=== PATIENT | male | born 1960 | race Caucasian/White ===

== ENCOUNTER 2018-01-13 08:13 | Day surgery (SDC) | payer MEDICARE, MEDICAID ==
[2018-01-13] MEDS ORDERED: Sodium Chloride 0.9% 10 ML Syringe FLUSH PRN (08:15)
[2018-01-13] MEDS ORDERED: Lactated Ringers 1,000 ML IV SCH (08:15)
[2018-01-13] MEDS ORDERED: Propofol 200 MG/20 ML SDV IV ONE (09:30)
[2018-01-13] MEDS ORDERED: Midazolam 1 MG/ML 2 ML SDV IV ONE (09:30)
--- NOTE | 2018-01-13 10:12 | PCM.OPNOTE ---
- General Post-Op/Procedure Note Date of Surgery/Procedure: 01/13/18 Operative Procedure(s): c scope with biopsy Findings: cecal polyp descending colon polyp x2 sigmoid polyp Pre Op Diagnosis: colon cancer screening Post-Op Diagnosis: cecal polyp. descending colon polyp x2. sigmoid polyp Anesthesia Technique: MAC Primary Surgeon: Kvng Jauregui Anesthesia Provider: Annabelle Otto Pathology: cecal polyp descending colon polyp x2 sigmoid polyp Complications: None Condition: Good Free Text/Narrative:: see dictation
[2018-01-13 11:25] VITALS: BP 132/81
--- NOTE | 2018-01-13 15:42 | OR ---
DATE OF OPERATION: 01/13/2018 SURGEON: Kvng Jauregui MD PROCEDURE PERFORMED: Colonoscopy with cold forceps and cold loop biopsy. PREOPERATIVE DIAGNOSIS: Screening colonoscopy. POSTOPERATIVE DIAGNOSIS: Cecal polyp, descending colon polyp x2, and sigmoid colon polyp. INDICATIONS FOR PROCEDURE: This 58-year-old white male presents for screening colonoscopy. He was offered and accepted same. DESCRIPTION OF OPERATION: After an excellent general IV sedation was administered, digital rectal exam was performed. No marked abnormality was noted. The flexible colonoscope was inserted and advanced to the cecum without difficulty. The following findings were noted. Near the appendix and the cecum, the patient had a small discolored area that appeared to be adenomatous compared to the surrounding tissue. This was biopsied and sent for permanent. The remainder of the ascending colon was unremarkable. Transverse colon was unremarkable. Descending colon, a small plaque area, biopsied with cold biopsy forceps and sent for permanent and then right next to it was a small polypoid lesion, biopsied with cold loop snare and sent for permanent. Sigmoid demonstrated a small polyp, biopsied with cold forceps biopsies and sent for permanent. Rectum and anus were unremarkable. Colon was deflated. Scope was removed. The patient tolerated the procedure well and was taken to recovery room in good condition. /[id number] /RADHA
== END 2018-01-13 11:10 | disposition home or self-care (01) ==
LOC: FB.SDS 08:13
PROVIDERS: ATTEND Surgery
DX: Z12.11 Encounter for screening for malignant neoplasm of colon (principal); D12.4 Benign neoplasm of descending colon; K63.5 Polyp of colon; Z88.0 Allergy status to penicillin; Z79.899 Other long term (current) drug therapy; I10 Essential (primary) hypertension; F32.9 Major depressive disorder, single episode, unspecified; I63.239 Cerebral infarction due to unspecified occlusion or stenosis of unspecified carotid artery; F17.210 Nicotine dependence, cigarettes, uncomplicated
CPT/HCPCS: 00812; 45380; 45385; 88305; J2250; J2704; J7120

== ENCOUNTER 2019-04-07 18:05 | Emergency (ER) | payer MEDICARE, MEDICAID ==
[2019-04-07] MEDS ORDERED: Rocuronium 50 MG/5 ML Vial IVPUSH ONE (18:06)
[2019-04-07] MEDS ORDERED: Propofol 200 MG/20 ML SDV IV ONE (18:06)
[2019-04-07] MEDS ORDERED: Phenylephrine 1% 10 MG/ML SDV IV ONE (18:06)
[2019-04-07] MEDS ORDERED: LORazepam 2 MG/ML SDV IVPUSH ONE (18:29)
[2019-04-07] MEDS ORDERED: Sodium Chloride 0.9% 1,000 ML IV ONE ×2 (18:29→19:29)
[2019-04-07] MEDS ORDERED: levETIRAcetam 1,000 MG in Sodium Chloride 0.9% 100 ML IV ONE (18:35)
[2019-04-07] MEDS ORDERED: Succinylcholine 200 MG/10 ML MDV IV ONE (19:03)
[2019-04-07] MEDS ORDERED: Midazolam 1 MG/ML 2 ML SDV IVPUSH ONE ×2 (19:08→19:11)
--- NOTE | 2019-04-07 20:21 | EDM.PDOC ---
ED HPI GENERAL MEDICAL PROBLEM - General Chief Complaint: Neurological Problem Stated Complaint: FALL-HEAD INJURY Time Seen by Provider: 04/07/19 18:15 Source of Information: Reports: Patient, EMS History Limitations: Reports: Other (Patient is postictal and he is amnestic of the events that occurred. He does feel that he has had a seizure as he has had multiple seizures in the past.) - History of Present Illness INITIAL COMMENTS - FREE TEXT/NARRATIVE: 59-year-old male who was found down in his garage with a laceration to his scalp and quite a bit of blood around the scalp laceration. He was awake and responsive according to EMS at that time but did appear to be somewhat confused/ post ictal. According to family and friends, the patient was last seen at approximately 3 PM when he told his friends that he was going to check on something and he would be back chi short period of time. Apparently he was not seen and at approximately 4:30 pm someone went to check on him and found him in his garage as mentioned above. According to the family and friends the patient had run out of his seizure medications (Keppra) and had not been taking his medication for approximately one week. The friends also felt that today, in retrospect, he seemed to be somewhat more nervous and shaky than normal. Apparently he had had no vomiting. He had no cough or cold symptoms. He had no fever.When he presented to the emergency department he was awake and alert. He was able to give information including previous information from today but was completely amnestic of the events that occurred after he left his friend's house and went to his garage until now. He was denying any headache or neck pain at this time but he was reporting the had diffuse back pain and was uncomfortable and felt very cold. He is not really able to rate his pain. And while I was placing orders on the patient, the patient had another seizure ( generalized tonic-clonic, lasting approximately 2 minutes and resolved on its own)he was given Ativan 1 mg after this and became more combative and was noted to have blood pressure in the 60-70 systolic range with O2 saturations in the mid 80s requiring supplemental oxygen and his mental status continued to deteriorate and required urgent intubation. There no other associated signs or symptoms. There are no other modifying factors. 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: Reports: Other (see below) (nothing) - Related Data Allergies Allergy/AdvReac Type Severity Reaction Status Date / Time Penicillins Allergy Cannot Verified 01/13/18 08:27 Remember Home Meds: Home Meds Clopidogrel [Plavix] 75 mg PO DAILY 02/01/14 [History] Hydrochlorothiazide/Lisinopril [Lisinopril-HCTZ 20-25 MG] 1 tab PO DAILY [History] levETIRAcetam [Keppra] 1,500 mg PO BID 02/01/14 [History] Citalopram Hydrobromide [Celexa] 40 mg PO DAILY 01/12/18 [History] Multivitamin with Minerals [Multiple Vitamin] 1 tab PO DAILY 01/12/18 [History] lamoTRIgine [Lamictal] 100 mg PO BID 01/12/18 [History] Past Medical History HEENT History: Reports: Impaired Vision Cardiovascular History: Reports: Hypertension Neurological History: Reports: Seizure, TIA Psychiatric History: Reports: Depression - Past Surgical History HEENT Surgical History: Reports: Tonsillectomy Cardiovascular Surgical History: Reports: Carotid Endarterectomy (right) Social & Family History - Family History Family Medical History: Noncontributory - Caffeine Use Caffeine Use: Reports: Coffee, Soda - Alcohol Use Alcohol Use History: Yes Alcohol Use Frequency: Rarely - Living Situation & Occupation Occupation: Disabled ED ROS GENERAL - Review of Systems Review Of Systems: ROS reveals no pertinent complaints other than HPI. (however , patient is postictal and although he gives some history that is reliable he is unreliablewith other history, therefore I feel that his review of systems is unreliable and unobtainable) - Physical Exam Exam: See Below Exam Limited By: No Limitations General Appearance: Alert, Moderate Distress Eye Exam: Bilateral Eye: EOMI, Normal Inspection, PERRL Ears: Normal External Exam, Hearing Grossly Normal Nose: Normal Inspection, Normal Mucosa, No Blood Throat/Mouth: Normal Voice, No Airway Compromise, Evidence of Tongue Biting, Other (dry mucous membranes) Head Exam: Scalp Lacerations, Other (large stellate laceration to thetop of his head. It is 18 cm in length totally) Neck: Non-Tender, Other (no crepitus. No evidence of trauma.) Respiratory/Chest: No Respiratory Distress, Lungs Clear, Normal Breath Sounds, Chest Non-Tender Cardiovascular: Normal Peripheral Pulses, No JVD, Tachycardia GI/Abdominal: Normal Bowel Sounds, Soft, No Mass (scaphoid) (Male) Exam: Normal Inspection, Circumcised Neuro Exam (Abbreviated): Alert, No Motor/Sensory Deficits, Disoriented ( somewhat. He appears postictal.) Extremities: Normal Inspection, Normal Range of Motion, No Pedal Edema, Normal Capillary Refill Skin Exam: Other (laceration to scalp as above. Somewhat pale appearing. Somewhat cool distal extremities.) ED PROCEDURES - Laceration/Wound Repair [place] Lac/wound length in cm: 18 Appearance: Subcutaneous, Moderately Contaminated, Other (did not involve galea) Anesthetic Type: Other (none, patient was chemicallyparalyzed and chemically sedated.) Skin Prep: Other (none) Saline irrigation (cc's): 1,000 Exploration/Debridement/Repair: Wound Explored, Other (lots removed and wound cultures irrigated with 1000 mL of normal saline. No crepitus or bony deformity noted.) Closed with: William (multiple william replace to reapproximate the wound and then a pressure type dressing was applied with an Lane wrap. This was performed after the patient was intubated.) - Endotracheal Intubation Time of Intubation: 19:04 ET Intubation Indication: Respiratory Failure, Airway Protection, Other Preparation: Suction, Balloon Tested, BVM Set Up, Difficult Airway Equip Airway Assessment: Other (typical) Pre-Oxygenation: Assisted with BVM, 100% FiO2, Other (nasal cannula laces well.) Anesthesia Meds: Midazolam, Succinylcholine Placement: Orotracheal (Glidescope used) Cords Visualized: Yes ETT Size In mm: 8 Number of Attempts: 1 Confirmed By: CO2 Indicator, Bilateral Breath Sounds, Chest Xray Tube Secured By: By Provider Course - Orders/Labs/Meds Orders: Active Orders 24 hr Category Date Time Status Blood Glucose Check, Bedside [RC] ONETIME Care 04/07/19 18:26 Active EKG Documentation Completion [RC] ASDIRECTED Care 04/07/19 18:27 Active NPO Now [Nothing per Oral Now Diet] [DIET] Diet 04/08/19 Breakfast Ordered Cervical Spine wo Cont [CT] Stat Exams 04/07/19 18:26 Taken Chest 1V Frontal [CR] Stat Exams 04/07/19 18:33 Taken Head wo Cont [CT] Stat Exams 04/07/19 18:26 Taken EKG 12 Lead [EK] Routine Ther 04/07/19 18:26 Ordered Labs: Laboratory Tests 04/07/19 04/07/19 04/07/19 Range/Units 18:42 18:42 18:42 WBC 38.6 H* (4.5-12.0) X10-3/uL RBC 4.21 L (4.30-5.75) x10(6)uL Hgb 13.7 (13.5-17.8) g/dL Hct 40.5 (30.0-51.3) % MCV 96.2 H (80-96) fL MCH 32.5 (27.7-33.6) pg MCHC 33.8 (32.2-35.4) g/dL RDW 12.2 (11.5-15.5) % Plt Count 364 (125-369) X10(3)uL MPV 6.9 L (7.4-10.4) fL Add Manual Diff Yes Neutrophils % (Manual) 84 H (46-82) % Band Neutrophils % 2 (0-6) % Lymphocytes % (Manual) 6 L (13-37) % Monocytes % (Manual) 8 (4-12) % PT 11.1 (8.7-11.1) INR 1.14 H (0.89-1.13) Sodium 146 H (135-145) mmol/L Potassium 4.0 (3.5-5.3) mmol/L Chloride 107 (100-110) mmol/L Carbon Dioxide 14 L (21-32) mmol/L BUN 13 (7-18) mg/dL Creatinine 1.8 H (0.70-1.30) mg/dL Est Cr Clr Drug Dosing TNP Estimated GFR (MDRD) 39 L (>60) BUN/Creatinine Ratio 7.2 L (9-20) Glucose 296 H (80-116) mg/dL Calcium 9.3 (8.6-10.2) mg/dL Total Bilirubin 0.3 (0.1-1.3) mg/dL AST 25 (5-25) IU/L ALT 29 (12-36) U/L Alkaline Phosphatase 86 (56-112) IU/L Total Protein 5.9 L (6.0-8.0) g/dL Albumin 3.5 (3.2-4.6) g/dL Globulin 2.4 g/dL Albumin/Globulin Ratio 1.5 Meds: Medications Discontinued Medications Generic Name Dose Route Start Last Admin Trade Name Pricila PRN Reason Stop Dose Admin Sodium Chloride 1,000 mls @ 999 mls/hr 04/07/19 18:29 Normal Saline IV 04/07/19 19:29 .BOLUS ONE Levetiracetam 1,000 mg/ Sodium 110 mls @ 400 mls/hr 04/07/19 18:35 Chloride IV 04/07/19 18:49 ONETIME ONE Lorazepam 1 mg 04/07/19 18:29 Ativan IVPUSH 04/07/19 18:30 ONETIME ONE - Radiology Interpretation Free Text/Narrative:: portable chest x-ray showed good ET tube placement and good gastric tube placement with the gastric tube in the fundus of the stomach. CT scan of head showed no definite fracture or bleeding. This is pending over read by the radiologist. CT scan of cervical spine showed a C7 body fracture anteriorly. - Re-Assessments/Exams Free Text/Narrative Re-Assessment/Exam: 04/07/19 20:34:Please note that this is a summary note. The patient was continually attended by myself from approximately 6:40 PM to 8:45 PM (65 minutes) and additional time was spent coordinating transfer, speaking to the accepting physician and reviewing diagnostic tests and responding to the results of these tests (25 minutes). The patient had a generalized tonic-clonic seizure was placing orders on the patient for evaluation and treatment. He was given Ativan 1 mg IV after the seizure terminated and following this he did have increased agitation and experience a drop in his blood pressure to the 60-70 systolic range with O2 saturations dipping into the 80% range. He became progressively more somnolent and despite increase fluids and increase oxygen, he did not improve and he required urgent endotracheal intubation.at this point additional IVs were established and the patient was given fluid boluses and his blood pressure did improve into the 110 systolic range and O2 saturations climbed to the 100 percent range but his pulse rate stayed into the 140s to 150s. He was given sedation and was taken to CT scan which confirmed no bleed or fracture in his head per my readbut did show a C7 vertebral body fracture. The patient was placed in a cervical collar. At this point his blood pressure did dip again into the 80s systolic range and he required Eliseo-Synephrine IV which was provided by the [facility] staff and additional fluid bolusing which brought his blood pressure up to the 120 systolic range. His pulse rate stayed in the 140 range. A Michele catheter was placed by the nursing staff and an OG tube was placed by myself after intubation. Air ambulance personnel were now present and the patient was then transported by them. Departure - Departure Time of Disposition: 20:28 Disposition: DC/Tfer to [facility], [facility] 02 Condition: Critical Clinical Impression: Seizures Scalp laceration Qualifiers: Encounter type: initial encounter Qualified Code(s): S01.01XA - Laceration without foreign body of scalp, initial encounter C7 cervical fracture Qualifiers: Encounter type: initial encounter Fracture type: closed Fracture morphology: unspecified fracture morphology Fracture alignment: displaced Qualified Code(s) : S12.600A - Unspecified displaced fracture of seventh cervical vertebra, initial encounter for closed fracture Respiratory failure Qualifiers: Chronicity: acute Respiratory failure complication: hypoxia Qualified Code(s): J96.01 - Acute respiratory failure with hypoxia - Discharge Information Referrals: PCP,None [Primary Care Provider] - Critical Care Note - Critical Care Note Total Time (mins): 90 - My Orders Last 24 Hours: My Active Orders 04/07/19 18:26 Blood Glucose Check, Bedside [RC] ONETIME Cervical Spine wo Cont [CT] Stat Head wo Cont [CT] Stat EKG 12 Lead [EK] Routine 04/07/19 18:27 EKG Documentation Completion [RC] ASDIRECTED 04/07/19 18:33 Chest 1V Frontal [CR] Stat 04/08/19 Breakfast NPO Now [Nothing per Oral Now Diet] [DIET] - Assessment/Plan Last 24 Hours: My Active Orders 04/07/19 18:26 Blood Glucose Check, Bedside [RC] ONETIME Cervical Spine wo Cont [CT] Stat Head wo Cont [CT] Stat EKG 12 Lead [EK] Routine 04/07/19 18:27 EKG Documentation Completion [RC] ASDIRECTED 04/07/19 18:33 Chest 1V Frontal [CR] Stat 04/08/19 Breakfast NPO Now [Nothing per Oral Now Diet] [DIET]
--- NOTE | 2019-04-07 20:51 | PCM.SN ---
- Free Text/Narrative Note: ANESTHESIA SERVICE Date: 04/07/2019 Time: 1905 to 1999 Procedure: Monitored Anesthesia Care I was called to the ED by the ED physician for an intubation. Upon arrival, he had completed the intubation and request that I provide MAC service to keep the patient sedated with ventilation control. For all vital signs please see the nursing notes. He had bilateral breath sounds equal with pin-point pupils bilaterally [slow response to light]. The ETT was 23 cm to the lip and positive EtCO2 return. During this period, I gave a total of 100 mg's of Propofol IV in divided doses, 50 mg's of Zemuron IV and 100 mcg's of Phenylephrine. The ED physician had given him 2 mg's of Versed. I hand ventilated him to keep a EtCO2 of 40-45 and a SpO2 greater than 94%. I did escort him to the CT Scanner and continued with MAC. Him did have a BP drop of 80 systolic with a heart of 146. I gave him 50 mcg's of Phenylephrine X 2 doses with a very good response. I continued care until the Care Flight team arrived and assumed care. The patient was stable at this time. A CXR for ETT placement was done and confirmed good placement. Thank you REYMUNDO Malone CRNA
[2019-04-07 22:46] VITALS: BP 111/73
[2019-04-07] MEDS ORDERED: Midazolam 1 MG/ML 2 ML SDV ONE (22:56)
== END 2019-04-07 20:00 ==
LOC: FB.ED 18:05
DX: S12.600A Unspecified displaced fracture of seventh cervical vertebra, initial encounter for closed fracture (principal); S01.01XA Laceration without foreign body of scalp, initial encounter; J96.01 Acute respiratory failure with hypoxia; R56.9 Unspecified convulsions; I10 Essential (primary) hypertension; F32.9 Major depressive disorder, single episode, unspecified; Z86.73 Personal history of transient ischemic attack (TIA), and cerebral infarction without residual deficits; Z88.0 Allergy status to penicillin; Z79.899 Other long term (current) drug therapy; X58.XXXA Exposure to other specified factors, initial encounter; Y92.009 Unspecified place in unspecified non-institutional (private) residence as the place of occurrence of the external cause
CPT/HCPCS: 12005; 31500; 36415; 51702; 70450; 71045; 72125; 80053; 82962; 85025; 85610; 96361; 96374; 96375; 99291; J0330; J2060; J2250; J2370; J2704; J7030; 99292; J3490

== ENCOUNTER 2021-11-04 16:35 | Observation (INO) | payer MEDICARE, MEDICAID ==
[2021-11-04] MEDS ORDERED: levETIRAcetam 1,500 MG in Sodium Chloride 0.9% 100 ML IV ONE (16:44)
--- NOTE | 2021-11-04 17:59 | CR ---
INDICATION: Seizure episode. CHEST, ONE VIEW: AP portable upright view of the chest, 11/04/21, was compared with 04/07/19. Effusion is noted at the lower cervical spine with a plate and screws. Overlying leads and grommets are noted. The heart appeared normal in size. Calcifications noted in the arch of the aorta. Somewhat heavy markings may be on the basis of pulmonary fibrosis. A definite consolidating pneumonia or effusion was not identified. IMPRESSION: 1. No definite acute process - somewhat heavy markings noted, which may be on the basis of interval fibrosis. Active interstitial disease, such as progressive interstitial fibrosis or even interstitial pneumonia would be difficult to exclude, however. 2. ASD aorta. 3. New postsurgical change with fusion lower cervical spine. 4. Mild dextroconvex scoliosis upper middle thoracic spine again noted. MTDD
[2021-11-04] MEDS ORDERED: LORazepam 2 MG/ML SDV IVPUSH ONE (18:29)
--- NOTE | 2021-11-04 18:50 | CT ---
INDICATION: Seizure episode-three seizures today, whole body. CT HEAD WITHOUT CONTRAST: Spiral 3.75 mm axial sections were obtained through the brain without contrast with axial, sagittal and coronal reconstructions. 11/04/21, and compared with 04/07/19. TOTAL EXAM DLP: 1373.85 mGy/cm. There is thickening of the lining of a few of the right-sided ethmoidal air cells with the paranasal sinuses and mastoid air cells otherwise well aerated. The orbits appear to be intact. The cranium appears to be intact. No shift of midline structures, ventricular abnormalities or findings to suggest an acute area of intracranial abnormality could be identified - no bleeding site or hematoma was seen. There are some stable tiny areas of low density, likely on the basis of microvascular disease-type changes in the white matter with some minimal calcification in internal carotid arteries and very minimal calcification suggested in the vertebral artery on the right with a very minimalistic size of the left vertebral artery again noted. A possible stable left basal gangliar lacunar infarct is suggested. No definite progressive cerebral atrophy is seen. IMPRESSION: 1. No acute intracranial abnormality. 2. Minimal microvascular disease-type changes in the white matter. Possible stable lacunar infarct left basal ganglia. Report was called to Dr. Maxwell at 1809 hours. [facility]
--- NOTE | 2021-11-04 19:00 | EDM.PDOC ---
ED HPI GENERAL MEDICAL PROBLEM - General Stated Complaint: SEIZURE Time Seen by Provider: 11/04/21 16:40 Source of Information: Reports: EMS, Family History Limitations: Reports: Altered Mental Status - History of Present Illness INITIAL COMMENTS - FREE TEXT/NARRATIVE: Patient is a 61 YO WM who presented to the ED via EMS because of 3 seizure episodes today. The first one occurred at about 1430 when he was in a friend's house. He was disoriented and confused and want to defecate on the porch as if he doesn't know what he is doing. He later have staring spell and became unresponsive to verbal stimuli. No generalized body jerking, or incontinence of stool or urine noted but there is post ictal confusion. The episode lasted for almost 5 minutes. According to his friend, the second episode is the same as the first one. En route to the ED he had a witnessed episode staring, followed by generalized body jerking which lasted for 5 minutes until patient arrived in the ED where he was given versed 2.5 mg IV x1 and his seizure stopped. Mr Duenas occasionally drinks alcohol, brother Mahesh isn't sure if he is taking his Keppra on time, but lately he has problem in sleeping. - Related Data Allergies Allergy/AdvReac Type Severity Reaction Status Date / Time Penicillins Allergy Cannot Verified 04/07/19 22:32 Remember Home Meds: Home Meds levETIRAcetam [Keppra] 1,500 mg PO BID 02/01/14 [History] Citalopram Hydrobromide [Celexa] 40 mg PO DAILY 01/12/18 [History] Omeprazole 20 mg PO DAILY 11/04/21 [History] amLODIPine [Norvasc] 5 mg PO DAILY 11/04/21 [History] atorvaSTATin [Lipitor] 40 mg PO BEDTIME 11/04/21 [History] Past Medical History HEENT History: Reports: Impaired Vision Cardiovascular History: Reports: Hypertension Neurological History: Reports: Seizure, TIA Psychiatric History: Reports: Depression - Past Surgical History HEENT Surgical History: Reports: Tonsillectomy Cardiovascular Surgical History: Reports: Carotid Endarterectomy (right) Social & Family History - Family History Family Medical History: No Pertinent Family History - Caffeine Use Caffeine Use: Reports: Coffee, Soda - Living Situation & Occupation Occupation: Disabled ED ROS GENERAL - Review of Systems Review Of Systems: See Below Constitutional: Reports: No Symptoms HEENT: Reports: No Symptoms Respiratory: Reports: No Symptoms Cardiovascular: Reports: No Symptoms Endocrine: Reports: No Symptoms GI/Abdominal: Reports: No Symptoms : Reports: No Symptoms Musculoskeletal: Reports: No Symptoms Skin: Reports: No Symptoms Neurological: Reports: Confusion, Headache Psychiatric: Reports: No Symptoms Hematologic/Lymphatic: Reports: No Symptoms Immunologic: Reports: No Symptoms - Physical Exam Exam: See Below Exam Limited By: No Limitations General Appearance: Other (confused) Ears: Normal External Exam, Normal Canal, Hearing Grossly Normal Nose: Normal Inspection, Normal Mucosa, No Blood Throat/Mouth: Normal Inspection, Normal Lips, Normal Teeth, Normal Gums, Normal Oropharynx, Normal Voice Head Exam: Atraumatic, Normocephalic Neck: Normal Inspection, Supple, Non-Tender, Full Range of Motion Respiratory/Chest: No Respiratory Distress, Lungs Clear, Normal Breath Sounds Cardiovascular: Normal Peripheral Pulses, Regular Rate, Rhythm, No Edema, No Gallop, No JVD, No Murmur, No Rub GI/Abdominal: Normal Bowel Sounds, Soft, Non-Tender, No Organomegaly, No Distention, No Abnormal Bruit, No Mass Neuro Exam (Abbreviated): Alert, Oriented, CN II-XII Intact, Normal Cognition, Normal Gait, Normal Reflexes, No Motor/Sensory Deficits Back Exam: Normal Inspection, Full Range of Motion Extremities: Normal Inspection, Normal Range of Motion, Non-Tender, No Pedal Edema, Normal Capillary Refill Psychiatric: Normal Affect, Normal Mood Skin Exam: Warm, Intact, Normal Color, No Rash #1 Interpretation EKG Date: 11/04/21 Time: 16:51 Rhythm: Other (Sinus Tach) Rate (Beats/Min): 115 [place]: Normal P-Wave: Present QRS: Normal ST-T: Normal QT: Normal NE/PQ Interval: 168 Comparison: NA - No Prior EKG EKG Interpretation Comments: Sinus Tach Course - Vital Signs Text/Narrative:: Lab/EKG/CXR/Head CT result was reviewed and discussed with patient's brother MAHESH Head CT-negative CXR-No acute Dse Versed 2.5 mg IV x1 Ativan 1 mg IV x1 Keppra 1.5 gm IV x1 Covid test-negative Last Recorded V/S: Last Vital Signs Temp 37.2 C 11/05/21 04:00 Pulse 100 11/05/21 04:00 Resp 18 11/05/21 04:00 BP 167/81 H 11/05/21 04:00 Pulse Ox 93 L 11/05/21 04:00 - Orders/Labs/Meds Orders: Active Orders 24 hr Category Date Time Status LEVETIRACETAM (KEPPRA), S Stat Lab 11/04/21 17:00 Received Medication Orders Amlodipine Besylate (Amlodipine 5 Mg Tab) 5 mg PO DAILY [facility] Atorvastatin Calcium (Atorvastatin 40 Mg Tab) 40 mg PO BEDTIME [facility] Enoxaparin Sodium (Enoxaparin 40 Mg/0.4 Ml Syringe) 40 mg SUBCUT Q24H [facility] Last Admin: 11/04/21 21:14 Dose: 40 mg Documented by: KIARA Sodium Chloride (Normal Saline) 1,000 mls @ 125 mls/hr IV ASDIRECTED [facility] Last Admin: 11/05/21 05:42 Dose: 125 mls/hr Documented by: Infusion: 11/05/21 05:17 Dose: 125 mls/hr Documented by: Admin: 11/04/21 21:17 Dose: 125 mls/hr Documented by: KIARA Levetiracetam 1,500 mg/ Sodium (Chloride) 115 mls @ 400 mls/hr IV Q12H [facility] Last Admin: 11/05/21 05:38 Dose: 400 mls/hr Documented by: YISSEL Lorazepam (Lorazepam 2 Mg/Ml Sdv) 1 mg IVPUSH Q4H PRN PRN Reason: agitation/seizure Last Admin: 11/05/21 02:52 Dose: 1 mg Documented by: Admin: 11/04/21 22:45 Dose: 1 mg Documented by: KIARA Non-Formulary Medication (Citalopram Hydrobromide [Celexa]) 40 mg PO DAILY [facility] Non-Formulary Medication (Omeprazole [Omeprazole]) 20 mg PO DAILY [facility] Ondansetron HCl (Ondansetron 4 Mg/2 Ml Sdv) 4 mg IV Q4H PRN PRN Reason: Nausea/Vomiting Senna/Docusate Sodium (Docusate Sodium/Sennosides 50-8.6 Mg Tab) 1 tab PO BID PRN PRN Reason: Constipation Labs: Laboratory Tests 11/04/21 11/04/21 11/04/21 Range/Units 17:00 17:00 17:00 WBC 10.1 (3.2-10.1) x10-3/uL RBC 5.09 (3.90-5.90) x10(6)uL Hgb 16.8 (12.9-17.7) g/dL Hct 50.7 H (38.3-50.1) % MCV 99.6 H (80.8-98.7) fL MCH 33.0 (27.0-33.3) pg MCHC 33.2 (28.7-35.3) g/dL RDW 12.8 (12.4-15.0) % Plt Count 208 (117-477) x10(3)uL MPV 6.6 L (6.7-11.0) fL Neut % (Auto) 82.2 H (40.3-71.8) % Lymph % (Auto) 13.0 L (15.8-45.3) % Millard % (Auto) 3.1 L (5.5-15.2) % Eos % (Auto) 1.4 (0.1-6.8) % Baso % (Auto) 0.3 (0.3-3.8) % Neut # (Auto) 8.3 H (1.7-6.9) x10-3/uL Lymph # (Auto) 1.3 (0.5-4.5) x10-3/uL Millard # (Auto) 0.3 (0.0-1.2) x10-3/uL Eos # (Auto) 0.1 (0.0-0.6) x10-3/uL Baso # (Auto) 0.0 (0.0-0.3) x10-3/uL Sodium 135 D (135-145) mmol/L Potassium 4.1 (3.5-5.3) mmol/L Chloride 98 L D (100-110) mmol/L Carbon Dioxide 17 L (21-32) mmol/L BUN 13 (7-18) mg/dL Creatinine 1.0 (0.70-1.30) mg/dL Est Cr Clr Drug Dosing 73.15 mL/min Estimated GFR (MDRD) > 60 (>60) BUN/Creatinine Ratio 13.0 (9-20) Glucose 127 H D (80-116) mg/dL Calcium 8.7 (8.6-10.2) mg/dL Total Bilirubin 0.5 (0.1-1.3) mg/dL AST 17 D (5-25) IU/L ALT 27 (12-36) U/L Alkaline Phosphatase 107 (56-112) IU/L Troponin I (4.0-60.3) pg/mL Total Protein 8.2 H (6.0-8.0) g/dL Albumin 4.8 H (3.2-4.6) g/dL Globulin 3.4 g/dL Albumin/Globulin Ratio 1.4 Ethyl Alcohol < 0.03 (<0.03) % SARS-CoV-2 RNA (ANAY) (NEGATIVE) 11/04/21 11/04/21 Range/Units 17:00 17:25 WBC (3.2-10.1) x10-3/uL RBC (3.90-5.90) x10(6)uL Hgb (12.9-17.7) g/dL Hct (38.3-50.1) % MCV (80.8-98.7) fL MCH (27.0-33.3) pg MCHC (28.7-35.3) g/dL RDW (12.4-15.0) % Plt Count (117-477) x10(3)uL MPV (6.7-11.0) fL Neut % (Auto) (40.3-71.8) % Lymph % (Auto) (15.8-45.3) % Millard % (Auto) (5.5-15.2) % Eos % (Auto) (0.1-6.8) % Baso % (Auto) (0.3-3.8) % Neut # (Auto) (1.7-6.9) x10-3/uL Lymph # (Auto) (0.5-4.5) x10-3/uL Millard # (Auto) (0.0-1.2) x10-3/uL Eos # (Auto) (0.0-0.6) x10-3/uL Baso # (Auto) (0.0-0.3) x10-3/uL Sodium (135-145) mmol/L Potassium (3.5-5.3) mmol/L Chloride (100-110) mmol/L Carbon Dioxide (21-32) mmol/L BUN (7-18) mg/dL Creatinine (0.70-1.30) mg/dL Est Cr Clr Drug Dosing mL/min Estimated GFR (MDRD) (>60) BUN/Creatinine Ratio (9-20) Glucose (80-116) mg/dL Calcium (8.6-10.2) mg/dL Total Bilirubin (0.1-1.3) mg/dL AST (5-25) IU/L ALT (12-36) U/L Alkaline Phosphatase (56-112) IU/L Troponin I 4.2 (4.0-60.3) pg/mL Total Protein (6.0-8.0) g/dL Albumin (3.2-4.6) g/dL Globulin g/dL Albumin/Globulin Ratio Ethyl Alcohol (<0.03) % SARS-CoV-2 RNA (ANAY) Negative (NEGATIVE) Meds: Medications Generic Name Dose Route Start Last Admin Trade Name Freq PRN Reason Stop Dose Admin Amlodipine Besylate 5 mg 11/05/21 09:00 Amlodipine 5 Mg Tab PO DAILY RINA Atorvastatin Calcium 40 mg 11/04/21 21:00 Atorvastatin 40 Mg Tab PO BEDTIME RINA Enoxaparin Sodium 40 mg 11/04/21 20:00 11/04/21 21:14 Enoxaparin 40 Mg/0.4 Ml Syringe SUBCUT 40 mg Q24H RINA Administration Sodium Chloride 1,000 mls @ 125 mls/hr 11/04/21 19:15 11/05/21 05:42 Normal Saline IV 125 mls/hr ASDIRECTED RINA Administration Levetiracetam 1,500 mg/ Sodium 115 mls @ 400 mls/hr 11/05/21 05:00 11/05/21 05:38 Chloride IV 400 mls/hr Q12H RINA Administration Lorazepam 1 mg 11/04/21 19:09 11/05/21 02:52 Lorazepam 2 Mg/Ml Sdv IVPUSH 1 mg Q4H PRN Administration agitation/seizure Non-Formulary Medication 40 mg 11/05/21 09:00 Citalopram Hydrobromide [Celexa] PO DAILY [facility]INA Non-Formulary Medication 20 mg 11/05/21 09:00 Omeprazole [Omeprazole] PO DAILY [facility] Ondansetron HCl 4 mg 11/04/21 19:09 Ondansetron 4 Mg/2 Ml Sdv IV Q4H PRN Nausea/Vomiting Senna/Docusate Sodium 1 tab 11/04/21 19:09 Docusate Sodium/Sennosides 50-8.6 Mg Tab PO BID PRN Constipation Discontinued Medications Generic Name Dose Route Start Last Admin Trade Name Freq PRN Reason Stop Dose Admin Amlodipine Besylate 5 mg 11/05/21 09:00 Amlodipine 5 Mg Tab PO DAILY [facility] Atorvastatin Calcium 40 mg 11/04/21 21:00 Atorvastatin 40 Mg Tab PO BEDTIME [facility] Levetiracetam 1,500 mg/ Sodium 115 mls @ 400 mls/hr 11/04/21 16:44 11/04/21 17:04 Chloride IV 11/04/21 16:58 400 mls/hr ONETIME ONE Administration Lorazepam 1 mg 11/04/21 18:29 11/04/21 18:42 Lorazepam 2 Mg/Ml Sdv IVPUSH 11/04/21 18:30 1 mg ONETIME ONE Administration Departure - Departure Time of Disposition: 18:00 Disposition: Refer to Observation Condition: Good Clinical Impression: Seizure, HTN (hypertension), GERD (gastroesophageal reflux disease), Dyslipidemia - Discharge Information - My Orders Last 24 Hours: My Active Orders 11/04/21 17:00 LEVETIRACETAM (KEPPRA), S Stat - Assessment/Plan Last 24 Hours: My Active Orders 11/04/21 17:00 LEVETIRACETAM (KEPPRA), S Stat
[2021-11-04] MEDS ORDERED: Ondansetron 4 MG/2 ML SDV IV PRN (19:09)
[2021-11-04] MEDS ORDERED: Enoxaparin 40 MG/0.4 ML Syringe SUBCUT SCH (20:00)
[2021-11-04] MEDS ORDERED: atorvaSTATin 40 MG Tab PO SCH (21:00)
[2021-11-04] MEDS: Sodium Chloride 0.9% 1,000 ML IV SCH (21:17)
[2021-11-04] MEDS: LORazepam 2 MG/ML SDV IVPUSH PRN (22:45)
[2021-11-05] MEDS: LORazepam 2 MG/ML SDV IVPUSH PRN (02:52)
[2021-11-05] MEDS ORDERED: levETIRAcetam 1,500 MG in Sodium Chloride 0.9% 100 ML IV SCH (05:00)
[2021-11-05] MEDS: Sodium Chloride 0.9% 1,000 ML IV SCH (05:42)
[2021-11-05] MEDS ORDERED: amLODIPine 5 MG Tab PO SCH (09:00)
--- NOTE | 2021-11-05 09:19 | PCM.HP.2 ---
H&P History of Present Illness - General Date of Service: 11/05/21 Admit Problem/Dx: Admission Diagnosis/Problem Admission Diagnosis/Problem Seizure Source of Information: EMS Notes Reviewed, Old Records History Limitations: Reports: Altered Mental Status - History of Present Illness Initial Comments - Free Text/Narative: 61-year-old male patient with a history of seizure disorder had 3 seizures last night and brought to the ER. He was admitted. This morning he does not remember thing about it. The ER note was reviewed. He had 3 seizures in the last was the ambulance and they have him Versed. He was admitted overnight and has been seizure-free since. Is little confused at home 1 to defecate on his porch and last night. Today he is better. Does not remember what happened to him he says he feels fine. He does use marijuana recreationally because it comes up in his urine drug screen. He has been taking his medications according to the patient. They stop will become blurred vision, dysphasia, aphasia, lateralized weakness. - Related Data Allergies/Adverse Reactions: Allergies Allergy/AdvReac Type Severity Reaction Status Date / Time Penicillins Allergy Cannot Verified 04/07/19 22:32 Remember Home Medications: Home Meds levETIRAcetam [Keppra] 1,500 mg PO BID 02/01/14 [History] Citalopram Hydrobromide [Celexa] 40 mg PO DAILY 01/12/18 [History] Omeprazole 20 mg PO DAILY 11/04/21 [History] amLODIPine [Norvasc] 5 mg PO DAILY 11/04/21 [History] atorvaSTATin [Lipitor] 40 mg PO BEDTIME 11/04/21 [History] Past Medical History HEENT History: Reports: Impaired Vision Cardiovascular History: Reports: Hypertension Gastrointestinal History: Reports: GERD Neurological History: Reports: Seizure, TIA Psychiatric History: Reports: Depression Endocrine/Metabolic History: Reports: None - Past Surgical History HEENT Surgical History: Reports: Tonsillectomy Cardiovascular Surgical History: Reports: Carotid Endarterectomy Neurological Surgical History: Reports: None Social & Family History - Family History Family Medical History: No Pertinent Family History - Tobacco Use Tobacco Use Status *Q: Never Tobacco User Second Hand Smoke Exposure: No - Caffeine Use Caffeine Use: Reports: Coffee - Recreational Drug Use Recreational Drug Use: Yes Drug Use in Last 12 Months: Yes Recreational Drug Type: Reports: Marijuana/Hashish Recreational Drug Use Frequency: Binges - Living Situation & Occupation Occupation: Disabled H&P Review of Systems - Review of Systems: Review Of Systems: See Below General: Reports: No Symptoms HEENT: Reports: No Symptoms Pulmonary: Reports: No Symptoms Cardiovascular: Reports: No Symptoms Gastrointestinal: Reports: No Symptoms Genitourinary: Reports: No Symptoms Musculoskeletal: Reports: No Symptoms Skin: Reports: No Symptoms Psychiatric: Reports: No Symptoms Neurological: Reports: Seizure Hematologic/Lymphatic: Reports: No Symptoms Immunologic: Reports: No Symptoms Exam - Exam Exam: See Below - Vital Signs Vital Signs: Last Vital Signs Temp 99.8 F 11/05/21 08:00 Pulse 97 11/05/21 08:00 Resp 20 11/05/21 08:00 BP 148/90 H 11/05/21 08:00 Pulse Ox 93 L 11/05/21 08:00 Weight: 164 lb 9.6 oz - Exam General: Alert, Oriented, Cooperative HEENT: Mucosa Moist & Souris, Posterior Pharynx Clear, TMs Clear Neck: Supple, Trachea Midline Lungs: Clear to Auscultation, Normal Respiratory Effort Cardiovascular: Regular Rate, Regular Rhythm GI/Abdominal Exam: Normal Bowel Sounds, Soft, Non-Tender, No Organomegaly, No Distention Back Exam: Normal Inspection, Full Range of Motion Extremities: Normal Inspection, Normal Range of Motion, Non-Tender, No Pedal Edema Skin: Warm, Dry, Intact Neurological: Cranial Nerves Intact Neuro Extensive - Mental Status: Alert, Normal Mood/Affect, Normal Cognition Psychiatric: Alert, Normal Affect, Normal Mood - Patient Data Lab Results Last 24 hrs: Laboratory Results - last 24 hr 11/04/21 11/04/21 11/04/21 Range/Units 17:00 17:00 17:00 WBC 10.1 (3.2-10.1) x10-3/uL RBC 5.09 (3.90-5.90) x10(6)uL Hgb 16.8 (12.9-17.7) g/dL Hct 50.7 H (38.3-50.1) % MCV 99.6 H (80.8-98.7) fL MCH 33.0 (27.0-33.3) pg MCHC 33.2 (28.7-35.3) g/dL RDW 12.8 (12.4-15.0) % Plt Count 208 (117-477) x10(3)uL MPV 6.6 L (6.7-11.0) fL Neut % (Auto) 82.2 H (40.3-71.8) % Lymph % (Auto) 13.0 L (15.8-45.3) % Carroll % (Auto) 3.1 L (5.5-15.2) % Eos % (Auto) 1.4 (0.1-6.8) % Baso % (Auto) 0.3 (0.3-3.8) % Neut # (Auto) 8.3 H (1.7-6.9) x10-3/uL Lymph # (Auto) 1.3 (0.5-4.5) x10-3/uL [place] # (Auto) 0.3 (0.0-1.2) x10-3/uL Eos # (Auto) 0.1 (0.0-0.6) x10-3/uL Baso # (Auto) 0.0 (0.0-0.3) x10-3/uL Add Manual Diff Neutrophils % (Manual) (46-82) % Lymphocytes % (Manual) (13-37) % Monocytes % (Manual) (4-12) % Sodium 135 D (135-145) mmol/L Potassium 4.1 (3.5-5.3) mmol/L Chloride 98 L D (100-110) mmol/L Carbon Dioxide 17 L (21-32) mmol/L BUN 13 (7-18) mg/dL Creatinine 1.0 (0.70-1.30) mg/dL Est Cr Clr Drug Dosing 73.15 mL/min Estimated GFR (MDRD) > 60 (>60) BUN/Creatinine Ratio 13.0 (9-20) Glucose 127 H D (80-116) mg/dL Calcium 8.7 (8.6-10.2) mg/dL Total Bilirubin 0.5 (0.1-1.3) mg/dL AST 17 D (5-25) IU/L ALT 27 (12-36) U/L Alkaline Phosphatase 107 (56-112) IU/L Troponin I (4.0-60.3) pg/mL Total Protein 8.2 H (6.0-8.0) g/dL Albumin 4.8 H (3.2-4.6) g/dL Globulin 3.4 g/dL Albumin/Globulin Ratio 1.4 Urine Opiates Screen (NEGATIVE) Ur Buprenorphine Scrn (NEGATIVE) Ur Oxycodone Screen (NEGATIVE) Urine Methadone Screen (NEGATIVE) Ur Propoxyphene Screen (NEGATIVE) Ur Barbiturates Screen (NEGATIVE) Ur Tricyclics Screen (NEGATIVE) Ur Phencyclidine Scrn (NEGATIVE) Ur Amphetamine Screen (NEGATIVE) U Methamphetamines Scrn (NEGATIVE) U Benzodiazepines Scrn (NEGATIVE) U Cocaine Metab Screen (NEGATIVE) U Marijuana (THC) Screen (NEGATIVE) Ethyl Alcohol < 0.03 (<0.03) % SARS-CoV-2 RNA (ANAY) (NEGATIVE) 11/04/21 11/04/21 11/04/21 Range/Units 17:00 17:25 19:30 WBC (3.2-10.1) x10-3/uL RBC (3.90-5.90) x10(6)uL Hgb (12.9-17.7) g/dL Hct (38.3-50.1) % MCV (80.8-98.7) fL MCH (27.0-33.3) pg MCHC (28.7-35.3) g/dL RDW (12.4-15.0) % Plt Count (117-477) x10(3)uL MPV (6.7-11.0) fL Neut % (Auto) (40.3-71.8) % Lymph % (Auto) (15.8-45.3) % Carroll % (Auto) (5.5-15.2) % Eos % (Auto) (0.1-6.8) % Baso % (Auto) (0.3-3.8) % Neut # (Auto) (1.7-6.9) x10-3/uL Lymph # (Auto) (0.5-4.5) x10-3/uL [place] # (Auto) (0.0-1.2) x10-3/uL Eos # (Auto) (0.0-0.6) x10-3/uL Baso # (Auto) (0.0-0.3) x10-3/uL Add Manual Diff Neutrophils % (Manual) (46-82) % Lymphocytes % (Manual) (13-37) % Monocytes % (Manual) (4-12) % Sodium (135-145) mmol/L Potassium (3.5-5.3) mmol/L Chloride (100-110) mmol/L Carbon Dioxide (21-32) mmol/L BUN (7-18) mg/dL Creatinine (0.70-1.30) mg/dL Est Cr Clr Drug Dosing mL/min Estimated GFR (MDRD) (>60) BUN/Creatinine Ratio (9-20) Glucose (80-116) mg/dL Calcium (8.6-10.2) mg/dL Total Bilirubin (0.1-1.3) mg/dL AST (5-25) IU/L ALT (12-36) U/L Alkaline Phosphatase (56-112) IU/L Troponin I 4.2 (4.0-60.3) pg/mL Total Protein (6.0-8.0) g/dL Albumin (3.2-4.6) g/dL Globulin g/dL Albumin/Globulin Ratio Urine Opiates Screen Negative (NEGATIVE) Ur Buprenorphine Scrn Negative (NEGATIVE) Ur Oxycodone Screen Negative (NEGATIVE) Urine Methadone Screen Negative (NEGATIVE) Ur Propoxyphene Screen Negative (NEGATIVE) Ur Barbiturates Screen Negative (NEGATIVE) Ur Tricyclics Screen Negative (NEGATIVE) Ur Phencyclidine Scrn Negative (NEGATIVE) Ur Amphetamine Screen Negative (NEGATIVE) U Methamphetamines Scrn Negative (NEGATIVE) U Benzodiazepines Scrn Negative (NEGATIVE) U Cocaine Metab Screen Negative (NEGATIVE) U Marijuana (THC) Screen Positive H (NEGATIVE) Ethyl Alcohol (<0.03) % SARS-CoV-2 RNA (ANAY) Negative (NEGATIVE) 11/05/21 11/05/21 Range/Units 06:15 06:15 WBC 9.9 (3.2-10.1) x10-3/uL RBC 4.69 (3.90-5.90) x10(6)uL Hgb 15.4 (12.9-17.7) g/dL Hct 44.7 (38.3-50.1) % MCV 95.3 (80.8-98.7) fL MCH 32.7 (27.0-33.3) pg MCHC 34.4 (28.7-35.3) g/dL RDW 12.6 (12.4-15.0) % Plt Count 205 (117-477) x10(3)uL MPV 7.0 (6.7-11.0) fL Neut % (Auto) (40.3-71.8) % Lymph % (Auto) (15.8-45.3) % Carroll % (Auto) (5.5-15.2) % Eos % (Auto) (0.1-6.8) % Baso % (Auto) (0.3-3.8) % Neut # (Auto) (1.7-6.9) x10-3/uL Lymph # (Auto) (0.5-4.5) x10-3/uL Carroll # (Auto) (0.0-1.2) x10-3/uL Eos # (Auto) (0.0-0.6) x10-3/uL Baso # (Auto) (0.0-0.3) x10-3/uL Add Manual Diff Yes Neutrophils % (Manual) 86 H (46-82) % Lymphocytes % (Manual) 10 L (13-37) % Monocytes % (Manual) 4 (4-12) % Sodium 135 (135-145) mmol/L Potassium 3.7 (3.5-5.3) mmol/L Chloride 100 (100-110) mmol/L Carbon Dioxide 25 (21-32) mmol/L BUN 9 (7-18) mg/dL Creatinine 0.7 (0.70-1.30) mg/dL Est Cr Clr Drug Dosing 104.50 mL/min Estimated GFR (MDRD) > 60 (>60) BUN/Creatinine Ratio 12.9 (9-20) Glucose 103 (80-116) mg/dL Calcium 8.3 L (8.6-10.2) mg/dL Total Bilirubin (0.1-1.3) mg/dL AST (5-25) IU/L ALT (12-36) U/L Alkaline Phosphatase (56-112) IU/L Troponin I (4.0-60.3) pg/mL Total Protein (6.0-8.0) g/dL Albumin (3.2-4.6) g/dL Globulin g/dL Albumin/Globulin Ratio Urine Opiates Screen (NEGATIVE) Ur Buprenorphine Scrn (NEGATIVE) Ur Oxycodone Screen (NEGATIVE) Urine Methadone Screen (NEGATIVE) Ur Propoxyphene Screen (NEGATIVE) Ur Barbiturates Screen (NEGATIVE) Ur Tricyclics Screen (NEGATIVE) Ur Phencyclidine Scrn (NEGATIVE) Ur Amphetamine Screen (NEGATIVE) U Methamphetamines Scrn (NEGATIVE) U Benzodiazepines Scrn (NEGATIVE) U Cocaine Metab Screen (NEGATIVE) U Marijuana (THC) Screen (NEGATIVE) Ethyl Alcohol (<0.03) % SARS-CoV-2 RNA (ANAY) (NEGATIVE) Result Diagrams: 11/05/21 06:15 11/05/21 06:15 Sepsis Event Note - Evaluation Sepsis Screening Result: No Definite Risk - Focused Exam Vital Signs: Vital Signs Temp Temp Pulse Resp BP Pulse Ox 11/05/21 08:00 99.8 F 97 20 148/90 H 93 L 11/05/21 04:00 99 F 100 18 167/81 H 93 L 11/05/21 00:00 98.4 F 97 18 148/89 H 94 L - Problem List (1) Recreational drug use SNOMED Code(s): 018623121, 614278257 ICD Code: F19.90 - OTHER PSYCHOACTIVE SUBSTANCE USE, UNSPECIFIED, UNCOMPLICATED Status: Acute Current Visit: Yes (2) Seizure SNOMED Code(s): 08859292 ICD Code: R56.9 - UNSPECIFIED CONVULSIONS Status: Acute Current Visit: No Problem List Initiated/Reviewed/Updated: Yes Orders Last 24hrs: Active Orders 24 hr Category Date Time Status Patient Status [ADT] Routine ADT 11/04/21 19:09 Active Oxygen Therapy [RC] PRN Care 11/04/21 19:09 Active Pulse Oximetry [RC] PRN Care 11/04/21 19:10 Active Up With Assistance [RC] ASDIRECTED Care 11/04/21 19:09 Active VTE/DVT Education [RC] Per Unit Routine Care 11/04/21 19:09 Active Vital Signs [RC] 00,04,08,12,16,20 Care 11/04/21 19:09 Active Heart Healthy Diet [DIET] Diet 11/04/21 Dinner Ordered LEVETIRACETAM (KEPPRA), S Stat Lab 11/04/21 17:00 Received Citalopram Hydrobromide [Celexa] Med 11/05/21 09:00 Ordered 40 mg PO DAILY Docusate Sodium/Sennosides [Senna Plus] Med 11/04/21 19:09 Active 1 tab PO BID PRN Enoxaparin [Lovenox] Med 11/04/21 20:00 Active 40 mg SUBCUT Q24H LORazepam [Ativan] Med 11/04/21 19:09 Active 1 mg IVPUSH Q4H PRN Omeprazole [Omeprazole] Med 11/05/21 09:00 Ordered 20 mg PO DAILY Ondansetron [Zofran] Med 11/04/21 19:09 Active 4 mg IV Q4H PRN Sodium Chloride 0.9% [Normal Saline] 1,000 ml Med 11/04/21 19:15 Active IV ASDIRECTED amLODIPine [Norvasc] Med 11/05/21 09:00 Pending 5 mg PO DAILY atorvaSTATin [Lipitor] Med 11/04/21 21:00 Pending 40 mg PO BEDTIME levETIRAcetam [Keppra] 1,500 mg Med 11/05/21 05:00 Active Sodium Chloride 0.9% [Normal Saline] 100 ml IV Q12H Sequential Compression Device [OM.PC] Per Unit Routine Oth 11/04/21 19:11 Ordered Resuscitation Status Routine Resus Stat 11/04/21 19:09 Ordered Medication Orders Amlodipine Besylate (Amlodipine 5 Mg Tab) 5 mg PO DAILY RINA Atorvastatin Calcium (Atorvastatin 40 Mg Tab) 40 mg PO BEDTIME RINA Enoxaparin Sodium (Enoxaparin 40 Mg/0.4 Ml Syringe) 40 mg SUBCUT Q24H [facility] Last Admin: 11/04/21 21:14 Dose: 40 mg Documented by: KIARA Sodium Chloride (Normal Saline) 1,000 mls @ 125 mls/hr IV ASDIRECTED RINA Last Admin: 11/05/21 05:42 Dose: 125 mls/hr Documented by: Infusion: 11/05/21 05:17 Dose: 125 mls/hr Documented by: Admin: 11/04/21 21:17 Dose: 125 mls/hr Documented by: KIARA Levetiracetam 1,500 mg/ Sodium (Chloride) 115 mls @ 400 mls/hr IV Q12H RINA Last Admin: 11/05/21 05:38 Dose: 400 mls/hr Documented by: YISSEL Lorazepam (Lorazepam 2 Mg/Ml Sdv) 1 mg IVPUSH Q4H PRN PRN Reason: agitation/seizure Last Admin: 11/05/21 02:52 Dose: 1 mg Documented by: Admin: 11/04/21 22:45 Dose: 1 mg Documented by: KIARA Non-Formulary Medication (Citalopram Hydrobromide [Celexa]) 40 mg PO DAILY RINA Non-Formulary Medication (Omeprazole [Omeprazole]) 20 mg PO DAILY RINA Ondansetron HCl (Ondansetron 4 Mg/2 Ml Sdv) 4 mg IV Q4H PRN PRN Reason: Nausea/Vomiting Senna/Docusate Sodium (Docusate Sodium/Sennosides 50-8.6 Mg Tab) 1 tab PO BID PRN PRN Reason: Constipation Assessment/Plan Comment:: 1. Admit for observation. 2. Seizure precautions 3. Regular diet 4. Up with assist. 5. Patient does not have his medication at this time. Determined for going to discharge him or keep him without the his medications. 6. Labs were repeated and they look good. - Mortality Measure Prognosis:: Good
[2021-11-05] MEDS ORDERED: CITALOPRAM HYDROBROMIDE 40 MG PO SCH (12:00)
[2021-11-05] MEDS ORDERED: amLODIPine 5 MG Tab *PTOM PO SCH (12:00)
[2021-11-05] MEDS ORDERED: OMEPRAZOLE 20 MG PO SCH (12:00)
[2021-11-05] MEDS ORDERED: lamoTRIgine 100 MG Tab *PTOM PO SCH (12:30)
[2021-11-05 13:24] VITALS: BP 153/79; PULSE 90
--- NOTE | 2021-11-05 14:09 | PCM.DCSUM1 ---
Discharge Summary - Hospital Course Free Text/Narrative:: Hospital course-patient was admitted for observation. He had no seizure-like activity. When he woke up he was little confused but cleared as the day went on. He was able to walk and ambulate and eat and drink. His sister called and asked to talk to me and he okayed it. But I called her and she did not answer. As he did well throughout the day in I do not see any reason for breakthrough seizures. He has no infection. CT chest x-ray showed really nothing that I can see. Is not symptomatic therefore I am a discharge him to home. He does not drive anyway so he can drive but continue taking same meds. Brief History: 61-year-old male patient with a history of seizure disorder had 3 seizures last night and brought to the ER. He was admitted. This morning he does not remember thing about it. The ER note was reviewed. He had 3 seizures in the last was the ambulance and they have him Versed. He was admitted overnight and has been seizure-free since. Is little confused at home 1 to defecate on his porch and last night. Today he is better. Does not remember what happened to him he says he feels fine. He does use marijuana recreationally because it comes up in his urine drug screen. He has been taking his medications according to the patient. They stop will become blurred vision, dysphasia, aphasia, lateralized weakness. Diagnosis: Stroke: No - Discharge Data Discharge Date: 11/05/21 Discharge Disposition: Home, Self-Care 01 Condition: Stable - Referral to Home Health Primary Care Physician: Luis Nava MD - Discharge Diagnosis/Problem(s) (1) Recreational drug use SNOMED Code(s): 910298313, [id number] ICD Code: F19.90 - OTHER PSYCHOACTIVE SUBSTANCE USE, UNSPECIFIED, UNCOMPLICATED Status: Acute Current Visit: Yes (2) Seizure SNOMED Code(s): 03731696 ICD Code: R56.9 - UNSPECIFIED CONVULSIONS Status: Acute Current Visit: No - Patient Instructions Diet: Regular Diet as Tolerated Activity: As Tolerated Driving: Do Not Drive Other/Special Instructions: 1. Recheck in 7-10 days. - Discharge Plan Home Medications: Home Meds levETIRAcetam [Keppra] 1,500 mg PO BID 02/01/14 [History] Citalopram Hydrobromide [Celexa] 40 mg PO DAILY 01/12/18 [History] Omeprazole 20 mg PO DAILY 11/04/21 [History] amLODIPine [Norvasc] 5 mg PO DAILY 11/04/21 [History] atorvaSTATin [Lipitor] 40 mg PO BEDTIME 11/04/21 [History] lamoTRIgine [Lamotrigine] 100 mg PO BID 11/05/21 [History] Forms: ED Department Discharge Referrals: Luis Nava MD [Primary Care Provider] - - Discharge Summary/Plan Comment DC Time >30 min.: No Total # of Minutes for Discharge Time: 10 minutes - Patient Data Vitals - Most Recent: Last Vital Signs Temp 99.9 F 11/05/21 12:00 Pulse 90 11/05/21 12:00 Resp 20 11/05/21 12:00 BP 136/84 11/05/21 13:09 Pulse Ox 92 L 11/05/21 12:00 Weight - Most Recent: 164 lb 9.6 oz I&O - Last 24 hours: Intake & Output 11/04/21 11/05/21 11/05/21 22:59 06:59 14:59 Intake Total 1415 Balance 1415 Lab Results - Last 24 hrs: Laboratory Results - last 24 hr 11/04/21 11/04/21 11/04/21 Range/Units 17:00 17:00 17:00 WBC 10.1 (3.2-10.1) x10-3/uL RBC 5.09 (3.90-5.90) x10(6)uL Hgb 16.8 (12.9-17.7) g/dL Hct 50.7 H (38.3-50.1) % MCV 99.6 H (80.8-98.7) fL MCH 33.0 (27.0-33.3) pg MCHC 33.2 (28.7-35.3) g/dL RDW 12.8 (12.4-15.0) % Plt Count 208 (117-477) x10(3)uL MPV 6.6 L (6.7-11.0) fL Neut % (Auto) 82.2 H (40.3-71.8) % Lymph % (Auto) 13.0 L (15.8-45.3) % [place] % (Auto) 3.1 L (5.5-15.2) % Eos % (Auto) 1.4 (0.1-6.8) % Baso % (Auto) 0.3 (0.3-3.8) % Neut # (Auto) 8.3 H (1.7-6.9) x10-3/uL Lymph # (Auto) 1.3 (0.5-4.5) x10-3/uL [place] # (Auto) 0.3 (0.0-1.2) x10-3/uL Eos # (Auto) 0.1 (0.0-0.6) x10-3/uL Baso # (Auto) 0.0 (0.0-0.3) x10-3/uL Add Manual Diff Neutrophils % (Manual) (46-82) % Lymphocytes % (Manual) (13-37) % Monocytes % (Manual) (4-12) % Sodium 135 D (135-145) mmol/L Potassium 4.1 (3.5-5.3) mmol/L Chloride 98 L D (100-110) mmol/L Carbon Dioxide 17 L (21-32) mmol/L BUN 13 (7-18) mg/dL Creatinine 1.0 (0.70-1.30) mg/dL Est Cr Clr Drug Dosing 73.15 mL/min Estimated GFR (MDRD) > 60 (>60) BUN/Creatinine Ratio 13.0 (9-20) Glucose 127 H D (80-116) mg/dL Calcium 8.7 (8.6-10.2) mg/dL Total Bilirubin 0.5 (0.1-1.3) mg/dL AST 17 D (5-25) IU/L ALT 27 (12-36) U/L Alkaline Phosphatase 107 (56-112) IU/L Troponin I (4.0-60.3) pg/mL Total Protein 8.2 H (6.0-8.0) g/dL Albumin 4.8 H (3.2-4.6) g/dL Globulin 3.4 g/dL Albumin/Globulin Ratio 1.4 Urine Opiates Screen (NEGATIVE) Ur Buprenorphine Scrn (NEGATIVE) Ur Oxycodone Screen (NEGATIVE) Urine Methadone Screen (NEGATIVE) Ur Propoxyphene Screen (NEGATIVE) Ur Barbiturates Screen (NEGATIVE) Ur Tricyclics Screen (NEGATIVE) Ur Phencyclidine Scrn (NEGATIVE) Ur Amphetamine Screen (NEGATIVE) U Methamphetamines Scrn (NEGATIVE) U Benzodiazepines Scrn (NEGATIVE) U Cocaine Metab Screen (NEGATIVE) U Marijuana (THC) Screen (NEGATIVE) Ethyl Alcohol < 0.03 (<0.03) % SARS-CoV-2 RNA (ANAY) (NEGATIVE) 11/04/21 11/04/21 11/04/21 Range/Units 17:00 17:25 19:30 WBC (3.2-10.1) x10-3/uL RBC (3.90-5.90) x10(6)uL Hgb (12.9-17.7) g/dL Hct (38.3-50.1) % MCV (80.8-98.7) fL MCH (27.0-33.3) pg MCHC (28.7-35.3) g/dL RDW (12.4-15.0) % Plt Count (117-477) x10(3)uL MPV (6.7-11.0) fL Neut % (Auto) (40.3-71.8) % Lymph % (Auto) (15.8-45.3) % [place] % (Auto) (5.5-15.2) % Eos % (Auto) (0.1-6.8) % Baso % (Auto) (0.3-3.8) % Neut # (Auto) (1.7-6.9) x10-3/uL Lymph # (Auto) (0.5-4.5) x10-3/uL [place] # (Auto) (0.0-1.2) x10-3/uL Eos # (Auto) (0.0-0.6) x10-3/uL Baso # (Auto) (0.0-0.3) x10-3/uL Add Manual Diff Neutrophils % (Manual) (46-82) % Lymphocytes % (Manual) (13-37) % Monocytes % (Manual) (4-12) % Sodium (135-145) mmol/L Potassium (3.5-5.3) mmol/L Chloride (100-110) mmol/L Carbon Dioxide (21-32) mmol/L BUN (7-18) mg/dL Creatinine (0.70-1.30) mg/dL Est Cr Clr Drug Dosing mL/min Estimated GFR (MDRD) (>60) BUN/Creatinine Ratio (9-20) Glucose (80-116) mg/dL Calcium (8.6-10.2) mg/dL Total Bilirubin (0.1-1.3) mg/dL AST (5-25) IU/L ALT (12-36) U/L Alkaline Phosphatase (56-112) IU/L Troponin I 4.2 (4.0-60.3) pg/mL Total Protein (6.0-8.0) g/dL Albumin (3.2-4.6) g/dL Globulin g/dL Albumin/Globulin Ratio Urine Opiates Screen Negative (NEGATIVE) Ur Buprenorphine Scrn Negative (NEGATIVE) Ur Oxycodone Screen Negative (NEGATIVE) Urine Methadone Screen Negative (NEGATIVE) Ur Propoxyphene Screen Negative (NEGATIVE) Ur Barbiturates Screen Negative (NEGATIVE) Ur Tricyclics Screen Negative (NEGATIVE) Ur Phencyclidine Scrn Negative (NEGATIVE) Ur Amphetamine Screen Negative (NEGATIVE) U Methamphetamines Scrn Negative (NEGATIVE) U Benzodiazepines Scrn Negative (NEGATIVE) U Cocaine Metab Screen Negative (NEGATIVE) U Marijuana (THC) Screen Positive H (NEGATIVE) Ethyl Alcohol (<0.03) % SARS-CoV-2 RNA (ANAY) Negative (NEGATIVE) 11/05/21 11/05/21 Range/Units 06:15 06:15 WBC 9.9 (3.2-10.1) x10-3/uL RBC 4.69 (3.90-5.90) x10(6)uL Hgb 15.4 (12.9-17.7) g/dL Hct 44.7 (38.3-50.1) % MCV 95.3 (80.8-98.7) fL MCH 32.7 (27.0-33.3) pg MCHC 34.4 (28.7-35.3) g/dL RDW 12.6 (12.4-15.0) % Plt Count 205 (117-477) x10(3)uL MPV 7.0 (6.7-11.0) fL Neut % (Auto) (40.3-71.8) % Lymph % (Auto) (15.8-45.3) % [place] % (Auto) (5.5-15.2) % Eos % (Auto) (0.1-6.8) % Baso % (Auto) (0.3-3.8) % Neut # (Auto) (1.7-6.9) x10-3/uL Lymph # (Auto) (0.5-4.5) x10-3/uL [place] # (Auto) (0.0-1.2) x10-3/uL Eos # (Auto) (0.0-0.6) x10-3/uL Baso # (Auto) (0.0-0.3) x10-3/uL Add Manual Diff Yes Neutrophils % (Manual) 86 H (46-82) % Lymphocytes % (Manual) 10 L (13-37) % Monocytes % (Manual) 4 (4-12) % Sodium 135 (135-145) mmol/L Potassium 3.7 (3.5-5.3) mmol/L Chloride 100 (100-110) mmol/L Carbon Dioxide 25 (21-32) mmol/L BUN 9 (7-18) mg/dL Creatinine 0.7 (0.70-1.30) mg/dL Est Cr Clr Drug Dosing 104.50 mL/min Estimated GFR (MDRD) > 60 (>60) BUN/Creatinine Ratio 12.9 (9-20) Glucose 103 (80-116) mg/dL Calcium 8.3 L (8.6-10.2) mg/dL Total Bilirubin (0.1-1.3) mg/dL AST (5-25) IU/L ALT (12-36) U/L Alkaline Phosphatase (56-112) IU/L Troponin I (4.0-60.3) pg/mL Total Protein (6.0-8.0) g/dL Albumin (3.2-4.6) g/dL Globulin g/dL Albumin/Globulin Ratio Urine Opiates Screen (NEGATIVE) Ur Buprenorphine Scrn (NEGATIVE) Ur Oxycodone Screen (NEGATIVE) Urine Methadone Screen (NEGATIVE) Ur Propoxyphene Screen (NEGATIVE) Ur Barbiturates Screen (NEGATIVE) Ur Tricyclics Screen (NEGATIVE) Ur Phencyclidine Scrn (NEGATIVE) Ur Amphetamine Screen (NEGATIVE) U Methamphetamines Scrn (NEGATIVE) U Benzodiazepines Scrn (NEGATIVE) U Cocaine Metab Screen (NEGATIVE) U Marijuana (THC) Screen (NEGATIVE) Ethyl Alcohol (<0.03) % SARS-CoV-2 RNA (ANAY) (NEGATIVE) Med Orders - Current: Current Medications Amlodipine Besylate (Amlodipine 5 Mg Tab *Ptom*) 5 mg PO DAILY [facility] Last Admin: 11/05/21 13:09 Dose: 5 mg Documented by: Atorvastatin Calcium (Atorvastatin 40 Mg Tab *Ptom*) 40 mg PO BEDTIME [facility] Enoxaparin Sodium (Enoxaparin 40 Mg/0.4 Ml Syringe) 40 mg SUBCUT Q24H [facility] Last Admin: 11/04/21 21:14 Dose: 40 mg Documented by: Sodium Chloride (Normal Saline) 1,000 mls @ 125 mls/hr IV ASDIRECTED [facility] Last Admin: 11/05/21 05:42 Dose: 125 mls/hr Documented by: Levetiracetam 1,500 mg/ Sodium (Chloride) 115 mls @ 400 mls/hr IV Q12H [facility] Last Admin: 11/05/21 05:38 Dose: 400 mls/hr Documented by: Lamotrigine (Lamotrigine 100 Mg Tab *Ptom*) 100 mg PO BID [facility] Last Admin: 11/05/21 13:10 Dose: 100 mg Documented by: Lorazepam (Lorazepam 2 Mg/Ml Sdv) 1 mg IVPUSH Q4H PRN PRN Reason: agitation/seizure Last Admin: 11/05/21 02:52 Dose: 1 mg Documented by: Citalopram Hydrobromide [Celexa ] 40 Mg Tablet *Ptom * 40 mg PO DAILY [facility] Last Admin: 11/05/21 13:09 Dose: 40 mg Documented by: Omeprazole 20 Mg Cap (.Cr *Ptom*) 20 mg PO DAILY [facility] Last Admin: 11/05/21 13:10 Dose: 20 mg Documented by: Ondansetron HCl (Ondansetron 4 Mg/2 Ml Sdv) 4 mg IV Q4H PRN PRN Reason: Nausea/Vomiting Senna/Docusate Sodium (Docusate Sodium/Sennosides 50-8.6 Mg Tab) 1 tab PO BID PRN PRN Reason: Constipation Discontinued Medications Amlodipine Besylate (Amlodipine 5 Mg Tab) 5 mg PO DAILY [facility] Atorvastatin Calcium (Atorvastatin 40 Mg Tab) 40 mg PO BEDTIME [facility] Levetiracetam 1,500 mg/ Sodium (Chloride) 115 mls @ 400 mls/hr IV ONETIME ONE Stop: 11/04/21 16:58 Last Admin: 11/04/21 17:04 Dose: 400 mls/hr Documented by: Lorazepam (Lorazepam 2 Mg/Ml Sdv) 1 mg IVPUSH ONETIME ONE Stop: 11/04/21 18:30 Last Admin: 11/04/21 18:42 Dose: 1 mg Documented by:
[2021-11-05] MEDS ORDERED: atorvaSTATin 40 MG Tab *PTOM PO SCH (21:00)
== END 2021-11-05 16:30 | disposition home or self-care (01) ==
LOC: FB.ED 16:35 → FB.MS 19:09
PROVIDERS: ADMIT Emergency Medicine; ATTEND Family Medicine
DX: G40.909 Epilepsy, unspecified, not intractable, without status epilepticus (principal); F19.90 Other psychoactive substance use, unspecified, uncomplicated; I10 Essential (primary) hypertension; K21.9 Gastro-esophageal reflux disease without esophagitis; Z98.890 Other specified postprocedural states; Z79.899 Other long term (current) drug therapy; Z88.0 Allergy status to penicillin; Z20.822 Contact with and (suspected) exposure to COVID-19
CPT/HCPCS: 36415; 70450; 71045; 80048; 80053; 80177; 80307; 84484; 85025; 96365; 96372; 96375; 96376; 99285-25; A9270-GY; G0378; J1650; J1953; J2060; J7030; U0002

== ENCOUNTER 2023-01-14 04:39 | Emergency (ER) | payer MEDICAID, MEDICARE ==
[2023-01-14] MEDS ORDERED: Acetaminophen/HYDROcodone 325-5 MG Tab PO ONE (04:53)
[2023-01-14 07:05] LABS: ESTIMATED GFR 102 mL/min (>60)
[2023-01-14] MEDS ORDERED: Furosemide 40 MG Tab PO ONE (08:22)
[2023-01-14] MEDS ORDERED: Albuterol/Ipratropium 3.0-0.5 MG/3 ML Neb Soln NEB ONE (08:41)
[2023-01-14] MEDS ORDERED: predniSONE 10 MG Tab PO ONE (08:44)
[2023-01-14 10:33] VITALS: BP 100/70; PULSE 97
== END 2023-01-14 10:24 | disposition home or self-care (01) ==
LOC: FB.ED 04:39
DX: J44.1 Chronic obstructive pulmonary disease with (acute) exacerbation (principal); K80.20 Calculus of gallbladder without cholecystitis without obstruction; N20.0 Calculus of kidney; J90 Pleural effusion, not elsewhere classified; I10 Essential (primary) hypertension; K21.9 Gastro-esophageal reflux disease without esophagitis; F17.210 Nicotine dependence, cigarettes, uncomplicated; Z88.0 Allergy status to penicillin; Z79.899 Other long term (current) drug therapy
CPT/HCPCS: 36415; 71045; 74176; 80053; 83880; 84484; 85025; 85610; 85730; 94640; 99284; 99285; A9270-GY; J7512; J7620

== ENCOUNTER 2025-08-27 03:24 | Inpatient (IN) | payer MEDICARE ==
[2025-08-27 03:49] LABS: LYMPHOCYTES ABSOLUTE AUTO 0.8 x10-3/uL (0.5-4.5)
[2025-08-27 04:02] LABS: A/G RATIO 0.9; ALANINE AMINOTRANSFERASE,ALT 22 U/L (12-36); ASPARTATE AMNIOTRANSFERASE,AST 16 IU/L (5-25); BILIRUBIN TOTAL 0.8 mg/dL (0.1-1.3); BLOOD UREA NITROGEN,BUN 11 mg/dL (7-18); CARBON DIOXIDE,CO2 29 mmol/L (21-32); CHLORIDE,CL 100 mmol/L (100-110); CREATININE 0.7 mg/dL (0.70-1.30); EST CRCL DRUG DOSING (CG) 88.69 mL/min; ESTIMATED GFR 101 mL/min (>60); GLUCOSE RANDOM 120 mg/dL (80-116); PROTEIN TOTAL,TP 6.9 g/dL (6.0-8.0); SODIUM,NA 139 mmol/L (135-145)
[2025-08-27 04:08] LABS: PRO B-TYPE NATRIUR PEPT,BNPPRO 105.0 pg/mL (<=125)
[2025-08-27 04:09] LABS: BASOPHILS ABSOLUTE AUTO 0.1 x10-3/uL (0.0-0.3); BASOPHILS PERCENT AUTO 0.5 % (0.3-3.8); EOSINOPHILS ABSOLUTE AUTO 0.0 x10-3/uL (0.0-0.6); EOSINOPHILS PERCENT AUTO 0.2 % (0.1-6.8); LYMPHOCYTES PERCENT AUTO 7.5 % (15.8-45.3); MEAN PLATELET VOLUME 7.0 fL (6.7-11.0); MONOCYTES ABSOLUTE AUTO 1.0 x10-3/uL (0.0-1.2); MONOCYTES PERCENT AUTO 8.8 % (5.5-15.2); NEUTROPHILS ABSOLUTE AUTO 9.2 x10-3/uL (1.7-6.9); NEUTROPHILS PERCENT AUTO 83.0 % (40.3-71.8); PLATELET COUNT,PLT 199 x10(3)uL (117-477); RED BLOOD CELL COUNT 4.54 x10(6)uL (3.90-5.90); RED CELL DISTRIBUTION WIDTH 12.2 % (12.4-15.0); WHITE BLOOD CELL COUNT,WBC 11.1 x10-3/uL (3.2-10.1)
[2025-08-27 04:12] LABS: POTASSIUM,K 2.8 mmol/L (3.5-5.3)
[2025-08-27] MEDS: Potassium Chloride 20 MEQ Tab.ER PO ONE (04:17)
[2025-08-27] MEDS ORDERED: methylPREDNISolone Sodium Succinate 125 MG/2 ML SDV IM ONE (05:33)
[2025-08-27] MEDS: methylPREDNISolone Sodium Succinate 125 MG/2 ML SDV IVPUSH ONE (05:39)
[2025-08-27 06:12] LABS: BASE EXCESS VENOUS,POC 3 mmol/L (-2 - 3+); PCO2 VENOUS,POC 42 mmHg (41-51); PH VENOUS,POC 7.43 pH Units (7.32-7.43)
[2025-08-27] MEDS ORDERED: Ondansetron 4 MG Tab.DIS PO PRN (06:43)
[2025-08-27] MEDS: NS + KCl 20mEq/L 1,000 ML IV SCH (09:03)
[2025-08-27] MEDS ORDERED: methylPREDNISolone Sodium Succinate 125 MG/2 ML SDV IVPUSH SCH (11:00)
[2025-08-27 11:43] LABS: INFLUENZA A NAA NEGATIVE (NEGATIVE); INFLUENZA B NAA NEGATIVE (NEGATIVE); RESPIRATORY SYNCYTIAL VIR NAA NEGATIVE (NEGATIVE)
[2025-08-27 11:53] LABS: CORONAVIRUS COVID-19 NAA NEGATIVE (NEGATIVE)
[2025-08-27] MEDS: methylPREDNISolone Sodium Succinate 125 MG/2 ML SDV IVPUSH SCH (18:43)
[2025-08-27] MEDS: Albuterol 0.083% 2.5 MG/3 ML Neb Soln NEB PRN (21:51)
[2025-08-27 21:56] LABS: BASE EXCESS VENOUS,POC 3 mmol/L (-2 - 3+); PCO2 VENOUS,POC 37 mmHg (41-51); PH VENOUS,POC 7.47 pH Units (7.32-7.43)
[2025-08-28 06:42] LABS: BLOOD UREA NITROGEN,BUN 12 mg/dL (7-18); CARBON DIOXIDE,CO2 31 mmol/L (21-32); CHLORIDE,CL 101 mmol/L (100-110); CREATININE 0.5 mg/dL (0.70-1.30); EST CRCL DRUG DOSING (CG) 119.48 mL/min; ESTIMATED GFR 112 mL/min (>60); GLUCOSE RANDOM 144 mg/dL (80-116); POTASSIUM,K 4.5 mmol/L (3.5-5.3); SODIUM,NA 136 mmol/L (135-145)
[2025-08-28] MEDS: Iopamidol 755 Mg/ML 100 ML Bottle IV SCH (07:10)
[2025-08-28] MEDS: FLUTICASONE INH SCH (08:49)
[2025-08-28] MEDS: VILANTEROL INH SCH (08:49)
[2025-08-28] MEDS: UMECLIDINIUM 62.5 MCG INH SCH (08:49)
[2025-08-28] MEDS ORDERED: Albuterol 0.083% 2.5 MG/3 ML Neb Soln NEB PRN (10:58)
[2025-08-29 06:47] LABS: MEAN PLATELET VOLUME 6.9 fL (6.7-11.0); PLATELET COUNT,PLT 245 x10(3)uL (117-477); RED BLOOD CELL COUNT 3.97 x10(6)uL (3.90-5.90); RED CELL DISTRIBUTION WIDTH 12.2 % (12.4-15.0); WHITE BLOOD CELL COUNT,WBC 13.7 x10-3/uL (3.2-10.1)
[2025-08-29 07:00] LABS: BLOOD UREA NITROGEN,BUN 14 mg/dL (7-18); CARBON DIOXIDE,CO2 31 mmol/L (21-32); CHLORIDE,CL 102 mmol/L (100-110); CREATININE 0.5 mg/dL (0.70-1.30); EST CRCL DRUG DOSING (CG) 119.48 mL/min; ESTIMATED GFR 112 mL/min (>60); GLUCOSE RANDOM 127 mg/dL (80-116); POTASSIUM,K 4.2 mmol/L (3.5-5.3); SODIUM,NA 137 mmol/L (135-145)
[2025-08-29 07:13] LABS: LYMPHOCYTES PERCENT MAN 4 % (13-37); MONOCYTES PERCENT MAN 4 % (4-12); SEG NEUTROPHILS PERCENT MAN 92 % (46-82)
[2025-08-29] MEDS: Aspirin 325 MG Tab.EC PO SCH (09:41)
[2025-08-29] MEDS: Sodium Chloride 0.9% 10 ML Syringe FLUSH PRN (20:53)
[2025-08-30 07:08] LABS: MEAN PLATELET VOLUME 7.0 fL (6.7-11.0); PLATELET COUNT,PLT 299 x10(3)uL (117-477); RED BLOOD CELL COUNT 4.26 x10(6)uL (3.90-5.90); RED CELL DISTRIBUTION WIDTH 12.3 % (12.4-15.0); WHITE BLOOD CELL COUNT,WBC 13.8 x10-3/uL (3.2-10.1)
[2025-08-30 07:15] LABS: BLOOD UREA NITROGEN,BUN 15 mg/dL (7-18); CARBON DIOXIDE,CO2 30 mmol/L (21-32); CHLORIDE,CL 98 mmol/L (100-110); CREATININE 0.7 mg/dL (0.70-1.30); EST CRCL DRUG DOSING (CG) 85.34 mL/min; ESTIMATED GFR 101 mL/min (>60); GLUCOSE RANDOM 122 mg/dL (80-116); POTASSIUM,K 4.2 mmol/L (3.5-5.3); SODIUM,NA 137 mmol/L (135-145)
[2025-08-30 07:58] LABS: LYMPHOCYTES PERCENT MAN 6 % (13-37); MONOCYTES PERCENT MAN 3 % (4-12); SEG NEUTROPHILS PERCENT MAN 91 % (46-82)
[2025-08-30 21:40] LABS: STREPTOCOCCUS PNEUMONIAE AG,UR Negative (Negative)
[2025-08-31 06:35] LABS: MEAN PLATELET VOLUME 6.6 fL (6.7-11.0); PLATELET COUNT,PLT 275 x10(3)uL (117-477); RED BLOOD CELL COUNT 4.05 x10(6)uL (3.90-5.90); RED CELL DISTRIBUTION WIDTH 12.3 % (12.4-15.0); WHITE BLOOD CELL COUNT,WBC 11.4 x10-3/uL (3.2-10.1)
[2025-08-31 06:41] LABS: BLOOD UREA NITROGEN,BUN 17 mg/dL (7-18); CARBON DIOXIDE,CO2 33 mmol/L (21-32); CHLORIDE,CL 99 mmol/L (100-110); CREATININE 0.6 mg/dL (0.70-1.30); EST CRCL DRUG DOSING (CG) 99.57 mL/min; ESTIMATED GFR 106 mL/min (>60); GLUCOSE RANDOM 122 mg/dL (80-116); POTASSIUM,K 4.6 mmol/L (3.5-5.3); SODIUM,NA 136 mmol/L (135-145)
[2025-08-31 07:12] LABS: BAND PERCENT MAN 1 % (0-6); LYMPHOCYTES PERCENT MAN 5 % (13-37); MONOCYTES PERCENT MAN 4 % (4-12); SEG NEUTROPHILS PERCENT MAN 90 % (46-82)
[2025-08-31 18:21] LABS: LEGIONELLA PNEUMOPHILA AG,URN Negative (Negative)
[2025-08-31] MEDS: methylPREDNISolone Sodium Succinate 40 MG/1 ML SDV IVPUSH SCH (20:09)
[2025-09-01 07:28] LABS: MEAN PLATELET VOLUME 6.6 fL (6.7-11.0); PLATELET COUNT,PLT 310 x10(3)uL (117-477); RED BLOOD CELL COUNT 4.41 x10(6)uL (3.90-5.90); RED CELL DISTRIBUTION WIDTH 12.2 % (12.4-15.0); WHITE BLOOD CELL COUNT,WBC 11.5 x10-3/uL (3.2-10.1)
[2025-09-01 07:47] LABS: A/G RATIO 1.0; ALANINE AMINOTRANSFERASE,ALT 57 U/L (12-36); ASPARTATE AMNIOTRANSFERASE,AST 23 IU/L (5-25); BILIRUBIN TOTAL 0.4 mg/dL (0.1-1.3); BLOOD UREA NITROGEN,BUN 16 mg/dL (7-18); CARBON DIOXIDE,CO2 30 mmol/L (21-32); CHLORIDE,CL 100 mmol/L (100-110); CREATININE 0.5 mg/dL (0.70-1.30); EST CRCL DRUG DOSING (CG) 119.48 mL/min; ESTIMATED GFR 112 mL/min (>60); GLUCOSE RANDOM 105 mg/dL (80-116); POTASSIUM,K 4.3 mmol/L (3.5-5.3); PROTEIN TOTAL,TP 6.1 g/dL (6.0-8.0); SODIUM,NA 136 mmol/L (135-145)
[2025-09-01 07:48] LABS: LYMPHOCYTES PERCENT MAN 7 % (13-37); MONOCYTES PERCENT MAN 6 % (4-12); SEG NEUTROPHILS PERCENT MAN 87 % (46-82)
[2025-09-01 08:01] VITALS: PULSE 72
[2025-09-01 17:40] VITALS: BP 165/80
== END 2025-09-01 09:19 | disposition home or self-care (01) | DRG 189 ==
LOC: FB.ED 03:24 → FB.MS 06:43 → OBSVTOIN 09:58
PROVIDERS: ADMIT Internal Medicine; ATTEND Family Medicine
DX: J96.01 Acute respiratory failure with hypoxia (principal); J44.1 Chronic obstructive pulmonary disease with (acute) exacerbation; J20.9 Acute bronchitis, unspecified; R53.1 Weakness; F17.200 Nicotine dependence, unspecified, uncomplicated; R56.9 Unspecified convulsions; F10.90 Alcohol use, unspecified, uncomplicated; I10 Essential (primary) hypertension; H91.90 Unspecified hearing loss, unspecified ear; H54.7 Unspecified visual loss; D72.829 Elevated white blood cell count, unspecified; E78.00 Pure hypercholesterolemia, unspecified; K21.9 Gastro-esophageal reflux disease without esophagitis; F32.A Depression, unspecified; Z90.49 Acquired absence of other specified parts of digestive tract; Z98.890 Other specified postprocedural states; Z86.73 Personal history of transient ischemic attack (TIA), and cerebral infarction without residual deficits; Z79.899 Other long term (current) drug therapy; Z88.0 Allergy status to penicillin
CPT/HCPCS: 36415; 71045; 80053; 83880; 84484; 85025; 87426; 93005; 94150; 94640; A9270 ×2; J1650; J2919; J3480; 71275; 80048; 83735; 84132; 87040; 87070; 87205; 87449; 87637; 87899; 96374; 97110-GP; 97116-GP; 97161-GP; 97165-GO; 97530-GP; 99285-25; J0456; J0696; J7050; Q9967